=== PATIENT | female | born 1995 | race Caucasian/White ===

== ENCOUNTER 2016-05-14 14:13 | Emergency (ER) | payer SELFPAY ==
--- NOTE | 2016-05-14 14:17 | PDOC ---
Sore Throat/Dental Pain HPI - General Chief Complaint: Nasal/Mouth Problem /Injury Stated Complaint: left lower jaw pain Date Seen by Provider: 05/14/16 Time Seen by Provider: 14:17 Source: POSITIVE: Patient Exam Limitations: POSITIVE: No limitations - History of Present Illness Initial Comments: Ms Bermudez is a 20 year old woman with several weeks of pain to her lower left molar. Over the past week, it has started to leak pus and become more painful. She is taking 800 mg ibuprofen at home, which helps but doesn't last very long. She has no fevers, difficulty swallowing, nausea/vomiting, or swelling to her jaw or throat. She can't get in to her dentist until later this month. - Patient Home Medications Home Medications: Home Medications Cephalexin [Keflex] 500 mg PO Q6H 7 Days 05/14/16 Tramadol HCl 50 mg PO Q6H PRN #30 tab 05/14/16 - Patient Allergies Allergies/Adverse Reactions: Allergies Allergy/AdvReac Type Severity Reaction Status Date / Time codeine Allergy Intermediate NOT Verified 05/14/16 14:19 APPLICABLE Past Medical History Past Medical History Reviewed: Reviewed - No Changes ROS - Limitations ROS Limitations: No Limitations Constitution: REPORTS: Denies Symptoms Cardiovascular: REPORTS: Denies Cardiac Symptoms Respiratory: REPORTS: Denies Resp Symptoms Neurological: REPORTS: Denies Neuro Symptoms Gastrointestinal: REPORTS: Denies GI Symptoms Musculoskeletal: REPORTS: Denies MS Symptoms Eyes: REPORTS: Denies Symptoms ENT: REPORTS: Dental Pain Skin: REPORTS: Denies Skin Symptoms Sore Throat/Dental Pain Exam - General Appearance General Appearance: REPORTS: Cooperative, No Acute Distress - HEENT Head / Face: POSITIVE: Atraumatic, Normal Inspection, No Facial Swelling Eyes: POSITIVE: PERRL, EOM's Intact Ears: POSITIVE: Ears Normal Inspection Oropharynx: POSITIVE: Other (erythema and mild edema surrounding mandibular 2nd molar on the left. No submandibular or sunlingual edema. Controlling her secretions. gingiva tender to palpation. small amount purulent drainage surrounding the tooth) Neck: POSITIVE: Supple - Respiratory Respiratory: REPORTS: No Respiratory Distress, Breath Sounds Normal - Cardiovascular Cardiovascular: REPORTS: Regular Rate and Rhythm, Heart Sounds Normal Peripheral Pulses: Radial (R): 2+, Radial (L): 2+ - Abdomen Abdomen: Soft: (All Quadrants), Denies Tenderness: (All Quadrants) - Extremities Extremity: Normal ROM: (All Extremities), Normal Inspection: (All Extremities) - Skin Skin: REPORTS: Intact, Normal For Race - Neurological / Psychological Neurological: POSITIVE: Affect Apporpriate, Oriented X3 Sore Throat/Dental Progress - Patient's Progress MDM / ED Course: Ms Bermudez has an infected 2nd molar on the right mandibular side. No evidence of airway involvement or infection seen. Will start on antibiotics, recommend follow up with her dentist Patient Care Time - Estimated PCT Patient Care Time (In Minutes): 10 Vital Signs - VS Reviewed Vital Signs Reviewed: Yes Discharge Clinical Impression: Dental abscess Discharge Disposition: Discharged to Home Condition: Fair Prescriptions / Orders: Cephalexin [Keflex] 500 mg PO Q6H 7 Days Tramadol HCl 50 mg PO Q6H PRN #30 tab PRN Reason: Pain Patient Instructions Given at Discharge: Dental Abscess (ED)
[2016-05-14] MEDS ORDERED: traMADol 50 MG TABLET PO ONE ×2 (14:21→14:28)
[2016-05-14 14:27] VITALS: TEMP 98.3
== END 2016-05-14 14:53 | disposition home or self-care (01) ==
LOC: ER 14:13
DX: K04.7 Periapical abscess without sinus (principal)
CPT/HCPCS: 99282